=== PATIENT | male | born 1955 ===

== ENCOUNTER 2018-12-19 08:33 | Inpatient (IN) ==
[2018-12-14 12:55] LABS: Appearance,Urine CLEAR; Bilirubin,Urine NEG (NEG); Color,Urine YELLOW; Glucose,Urine (UA) NEGATIVE (NEG); Ketones,Urine NEG (NEG); Leukocyte Esterase,Urine NEG /uL (NEG); Nitrate,Urine NEG (NEG); Protein,Urine NEG (NEG); Specific Gravity,Urine 1.012 (1.000-1.035); Urine Blood NEG mg/dL (<0.03); Urobilinogen,Urine NEG (NEG)
[2018-12-14 15:26] LABS: Basophils # (Auto) 0 K/mcL (0.0-0.3); Basophils % (Auto) 0.3 % (0.0-2.0); Eosinophils # (Auto) 0.2 K/mcL (0.0-0.7); Eosinophils % (Auto) 1.9 % (0.0-7.0); Granulocytes % (Auto) 63.1 % (38.0-78.0); Hematocrit 46.3 % (41.0-55.0); Hemoglobin 15.4 g/dL (13.5-16.5); Lymphocytes # (Auto) 2.6 K/mcL (1.5-4.8); Lymphocytes % (Auto) 28.2 % (15.5-49.0); Mean Cell Volume 94.7 fL (80.0-100.0); Mean Corpuscular HGB Conc 33.3 g/dL (31.0-36.0); Mean Platelet Volume 10.1 fL (7.4-10.4); Monocytes # (Auto) 0.6 K/mcL (0.1-0.9); Monocytes % (Auto) 6.5 % (1.0-12.0); Platelet Count 195 K/mcL (140-440); RBC 4.89 M/mcL (4.50-5.90); Red Cell Distribution Width 13.3 % (11.5-14.5); WBC 9.2 K/mcL (4.5-11.0)
[2018-12-14 15:38] LABS: Blood Urea Nitrogen 13 mg/dl (8-23); Calcium 9.6 mg/dl (8.6-10.4); Carbon Dioxide 24 mmol/L (22-30); Chloride 103 mmol/L (96-108); Glomerular Filtration Rate 81; Glucose 87 mg/dL (70-105)
[~2018-12-19 08:33] MED LIST: 0.9 % SODIUM CHLORIDE 9 ML, KETOROLAC 30 MG, ROPIVACAINE HCL/PF 49.5 ML, EPINEPHrine 0.... IJ SCH; ACETAMINOPHEN 500 MG TABLET PO SCH; CELECOXIB 200 MG CAPSULE PO SCH; PREGABALIN 75 MG CAPSULE PO SCH; ceFAZolin 2 GM in DEXTROSE 5% IN WATER 50 ML IV SCH; oxyCODONE 10 MG TAB.ER.12H PO SCH
[2018-12-19] MEDS ORDERED: IPRATROPIUM/ALBUTEROL 3 ML AMPUL.NEB NEB PRN (09:00)
[2018-12-19] MEDS ORDERED: SCOPOLAMINE 1 PATCH PATCH TOPICAL PRN (09:00)
[2018-12-19] MEDS ORDERED: ePHEDrine 50 MG/ML AMPUL IV ONE (13:05)
[2018-12-19] MEDS ORDERED: PROPOFOL 200 MG/20 ML VIAL IV ONE (13:05)
[2018-12-19] MEDS ORDERED: LIDOCAINE HCL/PF 100 MG/5 ML SYRINGE IV ONE (13:05)
[2018-12-19] MEDS ORDERED: KETAMINE 100 MG/ML ML IV ONE (13:05)
[2018-12-19] MEDS ORDERED: DEXAMETHASONE 10 MG/ML VIAL IV ONE (13:05)
[2018-12-19] MEDS ORDERED: GENTAMICIN SULFATE 800 MG/20 ML VIAL IR ONE (13:32)
[2018-12-19] MEDS ORDERED: FLEETS ADULT ENEMA PR PRN (15:06)
[2018-12-19] MEDS ORDERED: POLYETHYLENE GLYCOL 3350 17 GM PACKET PO PRN (15:06)
[2018-12-19] MEDS ORDERED: BISACODYL 10 MG SUPP.RECT PR PRN (15:06)
[2018-12-19] MEDS ORDERED: MAGNESIUM HYDROXIDE 30 ML ORAL.SUSP PO PRN (15:06)
[2018-12-19] MEDS ORDERED: BENZOCAINE/MENTHOL 1 LOZENGE PO PRN (15:06)
[2018-12-19] MEDS ORDERED: TRANEXAMIC ACID 1,000 MG/10 ML VIAL IV SCH (15:06)
[2018-12-19] MEDS ORDERED: ONDANSETRON 4 MG/2 ML VIAL IV PRN (15:06)
[2018-12-19] MEDS ORDERED: HYDROmorphone 2 MG/ML VIAL IV PRN (15:06)
[2018-12-19] MEDS ORDERED: ACETAMINOPHEN 325 MG TABLET PO PRN (15:06)
--- NOTE | 2018-12-19 15:06 | Brief Operative Note ---
Date of procedure: 12/19/18 Pre-op diagnosis: Right hip failure ie wornout Post-op diagnosis: same Procedure: Right hip revision cup and new head Grafts/Implants: Yes Anesthesia: SANDRA Surgeon: Dionte Nam Steeple Jack: Elbert Erazo Estimated blood loss (cc): 120 Specimens Removed/Pathology: none sent Condition: stable Disposition: PACU
[2018-12-19] MEDS ORDERED: BACLOFEN 10 MG TABLET PO PRN (15:08)
[2018-12-19] MEDS ORDERED: [UNRECOGNIZED DRUG - OTHER] PO SCH (15:15)
[2018-12-19] MEDS ORDERED: FOLIC ACID PO SCH (15:15)
[2018-12-19] MEDS ORDERED: VITAMIN B COMPLEX PO SCH (15:15)
[2018-12-19] MEDS ORDERED: MULTIVIT MIN PO SCH (15:15)
[2018-12-19] MEDS ORDERED: IRON PO SCH (15:15)
[2018-12-19] MEDS: LACTATED RINGERS 1,000 ML IV SCH ×2 (15:25→22:53)
--- NOTE | 2018-12-19 16:04 | XRay Report ---
CLINICAL INFORMATION: Post-op Total Hip COMPARISON: None. FINDINGS: Total hip prostheses in near anatomic alignment. No osseous abnormalities. Soft tissue swelling gas seen in the expected IMPRESSION: Right total hip prostheses in near anatomic alignment. Interpreted and Authenticated by: Fam Solorzano 12/19/18
[2018-12-19] MEDS: DOCUSATE SODIUM 100 MG CAPSULE PO SCH (20:15)
[2018-12-19] MEDS: ASPIRIN 325 MG ENTERIC COATED TABLET PO SCH (20:15)
[2018-12-19] MEDS: ceFAZolin 1 GM VIAL IV SCH (20:15)
[2018-12-19] MEDS ORDERED: TEMAZEPAM 15 MG CAPSULE PO PRN (21:00)
[2018-12-19] MEDS ORDERED: SENNOSIDES 1 TABLET PO SCH (21:00)
[2018-12-19] MEDS: oxyCODONE/APAP 5/325MG TABLET PO PRN ×2 (21:40→22:56)
[2018-12-19] MEDS: 0.9 % SODIUM CHLORIDE 10 ML SYRINGE IV SCH (22:03)
[2018-12-20] MEDS: ceFAZolin 1 GM VIAL IV SCH (04:13)
[2018-12-20] MEDS: LACTATED RINGERS 1,000 ML IV SCH (04:14)
[2018-12-20] MEDS: oxyCODONE/APAP 5/325MG TABLET PO PRN (04:15)
[2018-12-20] MEDS: 0.9 % SODIUM CHLORIDE 10 ML SYRINGE IV SCH (04:33)
--- NOTE | 2018-12-20 07:51 | Orthopedic Progress Note ---
Subjective Patient information: Note initiated : 12/20/18 at 7:50 am Service Date, if different from initiated Date: [] Patient: Bertram Lackey 63 y/o M admitted on 12/19/18 for Right Total Hip Revision. Chief Complaint: [Pt is stable this morning on post operative day 1 without any significant concerns or complaints. Patients vital signs have remained stable. Patients dressing is dry and is grossly intact from a neurovascular and motor standpoint. Patients 10 point ROS is otherwise negative. ] Objective Vital signs: Vital Signs Temp Pulse Resp BP Pulse Ox 12/20/18 04:11 98.0 F 68 18 125/80 98 12/20/18 04:00 98 12/19/18 22:51 97.9 F 74 14 96/54 97 12/19/18 22:50 97 12/19/18 21:00 99 12/19/18 19:52 97.4 F 68 14 141/79 99 12/19/18 18:33 70 119/71 98 12/19/18 18:00 67 125/78 99 12/19/18 17:52 95 12/19/18 17:30 56 L 148/84 98 12/19/18 17:00 60 125/75 100 12/19/18 16:45 58 L 124/78 100 12/19/18 16:30 56 L 132/78 99 12/19/18 16:15 58 L 129/73 100 12/19/18 16:03 97.1 F 63 18 145/67 99 12/19/18 15:55 63 14 144/68 100 12/19/18 15:45 68 15 141/71 100 12/19/18 15:40 60 20 119/67 99 12/19/18 15:35 61 14 120/69 100 12/19/18 15:30 63 14 116/67 100 12/19/18 15:25 97.6 F 67 10 L 104/61 98 12/19/18 09:00 97.5 F 58 L 18 115/65 99 Intake and Output 12/19/18 12/20/18 12/20/18 21:59 05:59 13:59 Intake Total 3190 2120 Output Total 1520 1500 Balance 1670 620 Intake: IV 1280 Lactated Ringers 1,000 ml @ 100 1280 mls/hr IV .Q10H HAYLIE Rx#: [id number] Oral 1040 840 IV - Manual Only 2150 Output: Urine Catheter Amount 1000 Straight 1000 Void Amount 400 1500 Estimated Blood Loss 120 Other: Urine Appearance Clear Straight Clear Urine Color Bright Yellow Pale Straight Bright Yellow Urine Odor Normal Normal Weight 187 lb 14.4 oz Intake & Output: Intake & Output 12/19/18 12/20/18 12/20/18 21:59 05:59 13:59 Intake Total 3190 2120 Output Total 1520 1500 Balance 1670 620 Weight 187 lb 14.4 oz Intake: IV 1280 Lactated Ringers 1,000 ml @ 100 1280 mls/hr IV .Q10H HAYLIE Rx#: [id number] Oral 1040 840 IV - Manual Only 2150 Output: Urine Catheter Amount 1000 Straight 1000 Void Amount 400 1500 Estimated Blood Loss 120 Other: Urine Appearance Clear Straight Clear Urine Color Bright Yellow Pale Straight Bright Yellow Urine Odor Normal Normal Incision: Yes healing Incision clean and dry: Yes Dressing: Yes clean Weight bearing status: full Neurological exam IM: Yes motor sensory intact, Yes neurovascular intact Extremities exam IM: Yes Foot pink and warm, Yes neurovascular intact - Labs CBC & BMP: 12/20/18 04:40 12/14/18 11:17 Labs: 12/20/18 12/14/18 04:40 11:17 Hgb 15.4 Hct 41.2 46.3 Assessment and Plan (1) History of revision of total hip arthroplasty The patient has been educated regarding dressing care, Physical Therapy recommendations, home exercises, restrictions, and follow up appointments. The patient has had all necessary DME prescribed. The patient has remained relatively stable during their hospital course. Leave Dermabond patch intact until followup Status: Acute
--- NOTE | 2018-12-20 07:53 | Discharge Summary ---
Ortho Discharge - [facility] - Patient Instructions Diet: Regular Diet Activity: activity as tolerated, weight bearing as tolerated Total Hip Protocol: Follow activity instructions as provided by Physical Therapy. Dressing Care: May shower in 2 days Patient Education: Revision Total Joint Arthroplasty (DC) - Problem Maintenance (1) History of revision of total hip arthroplasty Status: Acute - Follow Up Plan Follow Up Appointments: Elbert Erazo PA-C [[employer]] - 01/03/19 11:20 am Disposition: Home, Self-Care Prognosis: Good Rehab Potential: Good I certify that the patient requires SNF services: No Overall status at discharge: patient is progressing back to baseline - Orders For Discharge Prescriptions: Docusate Sodium [Colace] 100 mg PO BID #60 cap Transmission Status: Pending to [facility] Aspirin [Ecotrin] 325 mg PO BID #60 tab.ec Transmission Status: Pending to [facility] oxyCODONE/APAP [Percocet 5-325 mg] 1 - 2 tab PO Q4HP PRN #75 tab PRN Reason: Pain Level 3-6 Prescription Printed
--- NOTE | 2018-12-20 08:15 | Operative Note ---
DATE OF OPERATION: 12/19/2018 PREOPERATIVE DIAGNOSIS: Right hip degenerative arthritis with a failed implant after 20 years. The metal ball is up against the cement with a lytic area around the proximal femur. The implant cup appears to have failed and is completely [id number]. POSTOPERATIVE DIAGNOSIS: Right hip degenerative arthritis with a failed implant after 20 years. The metal ball was up against the cement with a lytic area around the proximal femur. The implant cup appears to have failed and was completely [id number]. PROCEDURE: Right total hip arthroplasty revision of the cup and humeral head with a new liner. SURGEON: Dionte Nam M.D. MIX HOUSE OPERATOR: Elbert Erazo PA-C. The PA's assistance was required for the safe and efficient completion of the entire case. This provider's expertise and technical skill were required throughout the case. The PA assisted with preoperative coordination, intraoperative retraction, wound closure, dressing and splint application, as well as postoperative documentation and care coordination. IMPLANT: 36 mm ceramic ball with a +3.5 neck length with a 56 mm liner designed for cementing and 36 mm ball match. ANESTHESIA: General LMA anesthesia. COMPLICATIONS: None. DESCRIPTION OF PROCEDURE: The patient was brought to the operating room and put to sleep with general LMA anesthesia. Once asleep, the patient had the right hip sterilely prepped and draped in the usual sterile fashion. Timeout performed to confirm the right hip is a total hip arthroplasty revision. A large prior scar, we were able to recreate the top part of the incision, not using the lower half. I incised through the fatty tissue and identified the fascial layer which was released and incised in line with muscle fibers. A Charnley retractor was placed. We exposed the superior portion of the hip and then were able to release and remove the capsule superiorly. We dislocated the hip superiorly noting a very dark-saldana fluid which was all metal debris. Once we entered, we sucked most of all this out we could and then removed the lining of the hip joint using direct exposure and capsulotomy. Once this was done, we removed the pockets of metal debris. We irrigated thoroughly and then we removed the old liner which was completely worn through superiorly with the metal wearing on the cup. We irrigated thoroughly and then the polyethylene removed as noted above. We then trialed different sizes. The 56 liner fit the best. This was a cemented cup. With this, we were able to place bone cement. After we trialed this, this gave us good leg length with a +3.5 mm neck, 36 mm ceramic head. This reestablished the center of hip rotation. Giving us up to 80 degrees of internal rotation before any subluxation even occurred. It was very stable. The 7 mm neck length was more stable but lengthened his leg overly and made it too tight with offset. We irrigated thoroughly and went with a 3.5 neck length with a 36 mm ceramic head. We cemented in the 56 cemented liner from [employer], which we roughened up the shell using a bur. We irrigated thoroughly and this cemented into place very nicely. We irrigated thoroughly and then trialed all the components once more. The most appropriate was a 36 mm ball with a 3.5 neck length. This was inserted and a ceramic ball. This was reduced, and we took the hip back through range of motion to make sure the cup was stable, which it was. We irrigated thoroughly and then we were able to close the capsule with #1 Ethibond. We closed the fascial layer with #1 Stratafix. We closed the fatty tissue with #1 Stratafix, and then we closed the skin with 2-0 Vicryl and adhesive closure. Sterile bandage was applied. The patient tolerated this well. The patient tolerated this well without complication. [id number] Job ID: [id number] Doc ID: [id number] Dionte Nam MD
[2018-12-20] MEDS: DOCUSATE SODIUM 100 MG CAPSULE PO SCH (08:36)
[2018-12-20] MEDS: ASPIRIN 325 MG ENTERIC COATED TABLET PO SCH (08:36)
== END 2018-12-20 10:00 | disposition home or self-care (01) | DRG 468 ==
LOC: MEDSUR 08:33
PROVIDERS: ADMIT Orthopaedic Surgery; ATTEND Orthopaedic Surgery